=== PATIENT | female | born 1960 | race African-American/Black ===

== ENCOUNTER 2018-04-09 22:19 | Emergency (ER) | payer OTHER ==
[2018-04-09 22:50] LABS: Hemoglobin 15.5 g/dL (12.0-16.0); Mean Corpuscular HGB CONC 33.3 g/dL (32.0-36.0); Mean Platelet Volume 7.3 fL (7.4-10.4); Platelet Count 283 thou/uL (130-400); RBC Distribution Width 11.9 % (11.5-14.5); Red Blood Cell (RBC) Count 5.01 mill/uL (4.20-5.40); White Blood Cell (WBC) Count 6.6 thou/uL (4.8-10.8)
[2018-04-09 23:05] LABS: Lactate 1.18 mmol/L (0.50-2.20)
[2018-04-09 23:09] LABS: Eosinophils 1 % (0-10); Lymphocytes 60 % (21-51); MDiff Complete? YES; Monocytes 1 % (0-10); Neutrophil 38 % (42-75); PLT Morphology Comment Appears Adequate; RBC Morphology Normal
[2018-04-09 23:11] LABS: ALT (SGPT) 18 U/L (8-55); AST (SGOT) 18 U/L (5-34); Albumin 3.8 g/dL (3.5-5.0); Alkaline Phosphatase 104 U/L (40-150); Anion Gap 11 mmol/L (10-20); BUN (Urea Nitrogen) 9 mg/dL (9.8-20.1); Bilirubin, Total Less than 0.2 mg/dL (0.2-1.2); Calc. Creatinine Clearance 0 mL/min (70-130); Calcium 9.3 mg/dL (7.8-10.44); Carbon Dioxide 24 mmol/L (22-29); Chloride 110 mmol/L (98-107); Estimated GFR-MDRD 55; Globulin 3.8 g/dL (2.4-3.5); Glucose 161 mg/dL (70-105); Protein, Total 7.6 g/dL (6.0-8.3); Sodium 141 mmol/L (136-145)
--- NOTE | 2018-04-09 23:22 | RAD ---
AP VIEW CHEST: 04/09/18 HISTORY: Pneumonia. Given antibiotics. Symptoms not improving. AP view chest is obtained. The lungs are well aerated. No evidence of active intrathoracic disease s een. No evidence of effusions, pneumonia or pneumothorax seen. IMPRESSION: Unremarkable AP view chest. POS: [facility]
[2018-04-10] MEDS ORDERED: Dexamethasone 10 MG/ML VIAL ONE (00:09)
[2018-04-10] MEDS ORDERED: Ketorolac Tromethamine 30 MG/ML VIAL ONE ×2 (00:09→00:13)
[2018-04-10] MEDS ORDERED: Dexamethasone 4 mg/ml Vial ONE (00:13)
== END 2018-04-10 01:31 | disposition home or self-care (01) ==
LOC: ERS 22:19
DX: B34.9 Viral infection, unspecified (principal)
CPT/HCPCS: 71045; 80053; 83605; 85025; 87040; 87804; 94640; 96365; 96375; J1100; J1885; J7620

== ENCOUNTER 2018-08-09 21:12 | Emergency (ER) | payer OTHER ==
[2018-08-09] MEDS ORDERED: Ketorolac Tromethamine 30 MG/ML VIAL ONE (22:00)
--- NOTE | 2018-08-09 22:17 | CT ---
ABDOMEN CT WITHOUT CONTRAST PELVIC CT WITHOUT CONTRAST 08/09/18 COMPARISON: 02/05/18. HISTORY: Flank pain. FINDINGS: Lung bases are clear. Herat size is normal. No pericardial effusion. The visualized aorta has a pearl l caliber. No periaortic fat stranding. Contracted gallbladder, likely due to a nonfasting state. Corey ited evaluation of the solid organs by the lack of IV contrast. Grossly, no solid organ abnormality. No gastrohepatic, retrocrural or periportal lymphadenopathy. There are a few scattered nonspecific mesenteric lymph nodes, similar to the previous examination. No mesenteric mass, lymphadenopathy, free air or free fluid. Limited evaluation of the alimentary canal by the lack of oral contrast. Multiple normal caliber smal l bowel loops. Ileocecal junction is normal. Normal caliber appendix emanates from the cecal apex. Th ere is scattered fecal material in a nondistended, nondilated colon. Occasional diverticulum No diver ticulitis. Bilaterally, no hydronephrosis, nephrolithiasis, or perinephric fat stranding. Bilateral ureters have a normal caliber. No hydroureter, periureteral fat stranding or ureterolithiasis. CT PELVIS: No mass, lymphadenopathy, free air, or free fluid. Decompressed urinary bladder is noted. No lytic or blastic lesions in the osseous structures. Pseudoarthrosis of the left L5 ala with the sa zamzam. IMPRESSION: 1. No evidence for nephrolithiasis or obstructive uropathy. 2. No evidence of bowel obstruction. Normal caliber appendix. POS: [facility]
[2018-08-09 22:19] LABS: #Basophils 0.1 thou/uL (0.0-0.2); #Eosinphils 0.2 thou/uL (0.0-0.7); #Lymphocytes 2.6 thou/uL (1.20-3.40); #Monocytes 0.5 thou/uL (0.11-0.59); #Neutrophils 2.7 thou/uL (1.40-6.50); %Basophils 1.4 % (0.0-1.0); %Eosinophils 3.3 % (0.0-10.0); %Monocytes 8.2 % (0.0-10.0); %Neutrophils 44.1 % (42.0-75.0); Hemoglobin 14.3 g/dL (12.0-16.0); Mean Corpuscular HGB CONC 32.7 g/dL (32.0-36.0); Mean Corpuscular Hemoglobin 30.7 pg (27.0-31.0); Mean Corpuscular Volume 94.1 fL (78.0-98.0); Mean Platelet Volume 7.8 fL (7.4-10.4); Platelet Count 247 thou/uL (130-400); RBC Distribution Width 12.1 % (11.5-14.5); Red Blood Cell (RBC) Count 4.64 mill/uL (4.20-5.40); White Blood Cell (WBC) Count 6.1 thou/uL (4.8-10.8)
[2018-08-09 23:00] LABS: Bilirubin Negative (Negative); Blood, Urine Trace (Negative); Clarity CLEAR (Clear); Glucose, Urine (Dipstick) Negative (Negative); Leukocyte Negative (Negative); Nitrite Negative (Negative); Protein, Urine (Dipstick) Negative (Neg-Trace); Specific Gravity, Urine 1.026 (1.002-1.036); Urobilinogen 0.2 mg/dL (0.2-1.0)
[2018-08-09 23:02] LABS: Bacteria/HPF None Seen HPF (None Seen); Hyaline Casts/LPF 0-3 HYALINE CAST LPF (0-3 Hyaline); Pathc Cast-AUWi Flag 0.43 (0-2.49); Squamous Epithelial 0-3 HPF (0-3); WBC/HPF 0-3 HPF (0-3)
[2018-08-09 23:26] LABS: ALT (SGPT) 25 U/L (8-55); AST (SGOT) 20 U/L (5-34); Albumin 3.7 g/dL (3.5-5.0); Alkaline Phosphatase 101 U/L (40-150); Anion Gap 14 mmol/L (10-20); BUN (Urea Nitrogen) 10 mg/dL (9.8-20.1); Bilirubin, Total Less than 0.2 mg/dL (0.2-1.2); Calc. Creatinine Clearance 0 mL/min (70-130); Calcium 9.4 mg/dL (7.8-10.44); Carbon Dioxide 23 mmol/L (22-29); Chloride 107 mmol/L (98-107); Estimated GFR-MDRD 76; Globulin 3.3 g/dL (2.4-3.5); Glucose 183 mg/dL (70-105); Potassium 4.2 mmol/L (3.5-5.1); Sodium 140 mmol/L (136-145)
== END 2018-08-09 23:42 | disposition home or self-care (01) ==
LOC: ERS 21:12
DX: R10.9 Unspecified abdominal pain (principal); R31.9 Hematuria, unspecified; G43.909 Migraine, unspecified, not intractable, without status migrainosus
CPT/HCPCS: 74176; 80053; 81003; 81015; 85025; 96374; J1885

== ENCOUNTER 2018-11-17 19:13 | Emergency (ER) | payer OTHER ==
[2018-11-17 19:45] LABS: #Basophils 0.1 thou/uL (0.0-0.2); #Eosinphils 0.1 thou/uL (0.0-0.7); #Lymphocytes 2.5 thou/uL (1.20-3.40); #Monocytes 0.6 thou/uL (0.11-0.59); #Neutrophils 3.6 thou/uL (1.40-6.50); %Basophils 0.9 % (0.0-1.0); %Eosinophils 1.7 % (0.0-10.0); %Lymphocytes 37.1 % (21.0-51.0); %Monocytes 8.1 % (0.0-10.0); %Neutrophils 52.2 % (42.0-75.0); Hemoglobin 14.9 g/dL (12.0-16.0); Mean Corpuscular HGB CONC 33.3 g/dL (32.0-36.0); Mean Corpuscular Volume 93.2 fL (78.0-98.0); Mean Platelet Volume 7.6 fL (7.4-10.4); Platelet Count 247 thou/uL (130-400); RBC Distribution Width 12.3 % (11.5-14.5); Red Blood Cell (RBC) Count 4.81 mill/uL (4.20-5.40); White Blood Cell (WBC) Count 6.8 thou/uL (4.8-10.8)
[2018-11-17 20:13] LABS: ALT (SGPT) 22 U/L (8-55); AST (SGOT) 17 U/L (5-34); Alkaline Phosphatase 95 U/L (40-150); Anion Gap 14 mmol/L (10-20); BUN (Urea Nitrogen) 11 mg/dL (9.8-20.1); Bilirubin, Total 0.3 mg/dL (0.2-1.2); Calc. Creatinine Clearance 0 mL/min (70-130); Calcium 9.6 mg/dL (7.8-10.44); Carbon Dioxide 24 mmol/L (22-29); Chloride 106 mmol/L (98-107); Estimated GFR-MDRD 73; Globulin 3.4 g/dL (2.4-3.5); Glucose 123 mg/dL (70-105); Lipase 20 U/L (8-78); Potassium 3.6 mmol/L (3.5-5.1); Protein, Total 7.4 g/dL (6.0-8.3); Sodium 140 mmol/L (136-145)
[2018-11-17 20:36] LABS: Bilirubin Negative (Negative); Blood, Urine Trace (Negative); Clarity CLOUDY (Clear); Glucose, Urine (Dipstick) Negative (Negative); Leukocyte Small (Negative); Nitrite Negative (Negative); Protein, Urine (Dipstick) Negative (Neg-Trace); Specific Gravity, Urine 1.021 (1.002-1.036)
[2018-11-17 20:38] LABS: Bacteria/HPF None Seen HPF (None Seen); Hyaline Casts/LPF 0-3 HYALINE CAST LPF (0-3 Hyaline); Pathc Cast-AUWi Flag 0.81 (0-2.49)
[2018-11-17] MEDS ORDERED: Ondansetron PF 4 MG/2 ML Vial ONE (20:54)
[2018-11-17] MEDS ORDERED: Fentanyl 100 MCG/2 ML VIAL ONE (20:54)
--- NOTE | 2018-11-17 20:55 | CT ---
CT Abdomen Pelvis W Con: 11/17/2018 8:32 PM CLINICAL INFORMATION: Right-sided abdominal pain that radiates to the back COMPARISON: 09/25/2011; 08/09/2018 TECHNIQUE: Multiple contiguous axial images were obtained and a CT of the abdomen and pelvis with IV contrast. C oronal reformats were performed. FINDINGS: Lower Chest: within normal limits. Abdomen: Liver: within normal limits. Bile Ducts: Normal caliber. Gallbladder: No calcified gallstones. Normal caliber wall. Pancreas: within normal limits. Spleen: within normal limits. Adrenals: within normal limits. Kidneys: within normal limits. Pelvis: Reproductive Organs: Status post hysterectomy. Ureters: within normal limits. Phleboliths are seen in the pelvis. Bladder: within normal limits. Peritoneum: No ascites or free air, no fluid collection. Bowel: Normal caliber. Normal appendix. Mesentery and Retroperitoneum: No enlarged mesenteric or retroperitoneal lymph nodes. Vessels: Normal. Abdominal Wall: within normal limits. Bones: Degenerative changes in the spine. Bilateral L5 pars defects. IMPRESSION: No evidence of acute intraabdominal\pelvic abnormality.
--- NOTE | 2018-11-17 21:38 | ULT ---
US Gallbladder RUQ: 11/17/2018 8:32 PM CLINICAL HISTORY: Abdominal pain that radiates to the back. STUDY: Limited right upper quadrant ultrasound of abdomen. COMPARISON: CT abdomen/pelvis 11/17/2018 FINDINGS: Liver: Size: Normal. Echogenicity: Normal. Contour: Smooth. Mass: None. Bile ducts: No intrahepatic or extrahepatic biliary dilatation. Common bile duct measures 3 mm. Gallbladder: Contracted without gallstones Pancreas: Head, body, and tail appear normal. Right kidney: No pelvicalyceal dilatation. Right kidney measuring 9.1 cm in length. IMPRESSION: Unremarkable exam.
[2018-11-17 22:44] LABS: Bilirubin Negative (Negative); Blood, Urine Trace (Negative); Clarity CLOUDY (Clear); Glucose, Urine (Dipstick) Negative (Negative); Leukocyte Small (Negative); Nitrite Negative (Negative); Protein, Urine (Dipstick) Negative (Neg-Trace); Specific Gravity, Urine 1.021 (1.002-1.036); Urobilinogen 0.2 mg/dL (0.2-1.0)
[2018-11-17 22:45] LABS: Bacteria/HPF None Seen HPF (None Seen); Hyaline Casts/LPF 4-6 HYALINE CAST LPF (0-3 Hyaline); Pathc Cast-AUWi Flag 1.08 (0-2.49); RBC/HPF 0-3 HPF (0-3)
== END 2018-11-17 22:55 | disposition home or self-care (01) ==
LOC: ERS 19:13
DX: R10.31 Right lower quadrant pain (principal); R10.811 Right upper quadrant abdominal tenderness; G43.909 Migraine, unspecified, not intractable, without status migrainosus
CPT/HCPCS: 74177; 76705; 80053; 81003; 81015; 83690; 85025; 87086; 96361; 96372; 96374; 96375; J0500; J2405; J3010

== ENCOUNTER 2018-11-20 14:41 | Emergency (ER) | payer OTHER ==
[2018-11-20 15:21] LABS: #Basophils 0.1 thou/uL (0.0-0.2); #Eosinphils 0.1 thou/uL (0.0-0.7); #Lymphocytes 2.2 thou/uL (1.20-3.40); #Monocytes 0.7 thou/uL (0.11-0.59); #Neutrophils 3.4 thou/uL (1.40-6.50); %Basophils 1.3 % (0.0-1.0); %Eosinophils 2.1 % (0.0-10.0); %Lymphocytes 33.6 % (21.0-51.0); %Monocytes 10.6 % (0.0-10.0); %Neutrophils 52.3 % (42.0-75.0); Hemoglobin 14.8 g/dL (12.0-16.0); Mean Corpuscular HGB CONC 32.5 g/dL (32.0-36.0); Mean Corpuscular Hemoglobin 30.2 pg (27.0-31.0); Mean Corpuscular Volume 93.1 fL (78.0-98.0); Mean Platelet Volume 7.3 fL (7.4-10.4); Platelet Count 236 thou/uL (130-400); RBC Distribution Width 12.2 % (11.5-14.5); Red Blood Cell (RBC) Count 4.91 mill/uL (4.20-5.40); White Blood Cell (WBC) Count 6.5 thou/uL (4.8-10.8)
[2018-11-20] MEDS ORDERED: Ketorolac Tromethamine 30 MG/ML VIAL ONE (15:46)
[2018-11-20 15:47] LABS: ALT (SGPT) 29 U/L (8-55); AST (SGOT) 21 U/L (5-34); Albumin 3.7 g/dL (3.5-5.0); Alkaline Phosphatase 90 U/L (40-150); Anion Gap 10 mmol/L (10-20); BUN (Urea Nitrogen) 8 mg/dL (9.8-20.1); Bilirubin, Total 0.3 mg/dL (0.2-1.2); Calc. Creatinine Clearance 0 mL/min (70-130); Calcium 9.6 mg/dL (7.8-10.44); Carbon Dioxide 28 mmol/L (22-29); Chloride 107 mmol/L (98-107); Estimated GFR-MDRD 73; Globulin 3.1 g/dL (2.4-3.5); Glucose 103 mg/dL (70-105); Lipase 11 U/L (8-78); Potassium 3.9 mmol/L (3.5-5.1); Protein, Total 6.8 g/dL (6.0-8.3); Sodium 141 mmol/L (136-145)
[2018-11-20 16:01] LABS: Bilirubin Negative (Negative); Blood, Urine Negative (Negative); Clarity CLEAR (Clear); Glucose, Urine (Dipstick) Negative (Negative); Leukocyte Negative (Negative); Nitrite Negative (Negative); Protein, Urine (Dipstick) Negative (Neg-Trace); Specific Gravity, Urine 1.021 (1.002-1.036); Urobilinogen 0.2 mg/dL (0.2-1.0); pH, Urine 7.5 (5.0-9.0)
--- NOTE | 2018-11-20 16:43 | ULT ---
PELVIC ULTRASOUND: HISTORY: Right pelvic pain. TECHNIQUE: Transabdominal and endovaginal ultrasound of the pelvis performed. FINDINGS: The patient is post hysterectomy. The patient is unsure if she has had the ovaries removed. Neither ovary is identified. Bowel loops are seen in the pelvis. No fluid collection. IMPRESSION: Limited examination. No abnormality identified. The patient is post hysterectomy. Neither ovary is identified. POS: [facility]
== END 2018-11-20 16:35 | disposition home or self-care (01) ==
LOC: ERS 14:41
DX: R10.31 Right lower quadrant pain (principal)
CPT/HCPCS: 36415; 76857; 80053; 81003; 83690; 85025; 96361; 96374; J1885

== ENCOUNTER 2019-01-17 16:47 | Emergency (ER) | payer OTHER ==
[2019-01-17 18:06] LABS: #Eosinphils 0.1 thou/uL (0.0-0.7); #Lymphocytes 2.6 thou/uL (1.20-3.40); #Monocytes 0.7 thou/uL (0.11-0.59); #Neutrophils 4.3 thou/uL (1.40-6.50); %Basophils 0.3 % (0.0-1.0); %Eosinophils 1.6 % (0.0-10.0); %Lymphocytes 33.6 % (21.0-51.0); %Neutrophils 55.6 % (42.0-75.0); Hemoglobin 16.8 g/dL (12.0-16.0); Mean Corpuscular HGB CONC 32.8 g/dL (32.0-36.0); Mean Corpuscular Hemoglobin 30.6 pg (27.0-31.0); Mean Corpuscular Volume 93.2 fL (78.0-98.0); Mean Platelet Volume 7.4 fL (7.4-10.4); Platelet Count 258 thou/uL (130-400); White Blood Cell (WBC) Count 7.7 thou/uL (4.8-10.8)
[2019-01-17] MEDS ORDERED: Ondansetron PF 4 MG/2 ML Vial ONE (18:17)
[2019-01-17 18:19] LABS: ALT (SGPT) 47 U/L (8-55); AST (SGOT) 29 U/L (5-34); Albumin 4.2 g/dL (3.5-5.0); Alkaline Phosphatase 102 U/L (40-150); Anion Gap 12 mmol/L (10-20); BUN (Urea Nitrogen) 10 mg/dL (9.8-20.1); Bilirubin, Total 0.3 mg/dL (0.2-1.2); Calc. Creatinine Clearance 0 mL/min (70-130); Calcium 9.8 mg/dL (7.8-10.44); Carbon Dioxide 23 mmol/L (22-29); Chloride 108 mmol/L (98-107); Estimated GFR-MDRD 65; Globulin 3.8 g/dL (2.4-3.5); Glucose 105 mg/dL (70-105); Lipase 14 U/L (8-78); Potassium 4.2 mmol/L (3.5-5.1); Sodium 139 mmol/L (136-145)
[2019-01-17 20:11] LABS: Bacteria/HPF None Seen HPF (None Seen); Bilirubin Negative (Negative); Blood, Urine Negative (Negative); Clarity Clear (Clear); Glucose, Urine (Dipstick) Normal (Negative); Leukocyte 75 Leu/uL (Negative); Nitrite Negative (Negative); Protein, Urine (Dipstick) 10 mg/dL (Neg-Trace); Squamous Epithelial 0-3 HPF (0-3); Urobilinogen Normal mg/dL (Less than 2); WBC/HPF 0-3 HPF (0-3)
== END 2019-01-17 21:50 | disposition home or self-care (01) ==
LOC: ERS 16:47
DX: E86.0 Dehydration (principal); R42 Dizziness and giddiness; R51 Headache
CPT/HCPCS: 36415; 80053; 81003; 81015; 82550; 83690; 84484; 85025; 93005; 96360; 96361; 96374; J2405

== ENCOUNTER 2019-03-30 15:39 | Outpatient (CLI) | payer OTHER ==
--- NOTE | 2019-03-30 16:43 | MMO ---
Bilateral MAMMO Bilat Screen [facility]. CLINICAL HISTORY: Patient is 58 years old and is seen for screening. The patient has no family history of breast cancer. The patient has no personal history of cancer. The patient has a history of bilateral Breast reduction in 2010 - benign. VIEWS: The views performed were: bilateral craniocaudal with tomosynthesis and bilateral mediolateral oblique with tomosynthesis. FILMS COMPARED: The present examination has been compared to prior imaging studies performed at [facility] on 11/23/2013 and 11/14/2015. This study has been interpreted with the assistance of computer-aided detection. MAMMOGRAM FINDINGS: There are scattered fibroglandular densities. There are stable benign appearing calcifications seen in both breasts. There are no suspicious masses, suspicious calcifications, or new areas of architectural distortion. IMPRESSION: THERE IS NO MAMMOGRAPHIC EVIDENCE OF MALIGNANCY. A ROUTINE FOLLOW-UP MAMMOGRAM IN 1 YEAR IS RECOMMENDED. THE RESULTS OF THIS EXAM WERE SENT TO THE PATIENT. ACR BI-RADS Category 2 - Benign finding MAMMOGRAPHY NOTE: 1. A negative mammogram report should not delay a biopsy if a dominant of clinically suspicious mass is present. 2. Approximately 10% to 15% of breast cancers are not detected by mammography. 3. Adenosis and dense breasts may obscure an underlying neoplasm. Reported by: DEBBY RIDDLE MD Electonically Signed: [id number]
== END 2019-03-30 15:40 | disposition home or self-care (01) ==
LOC: BICMAMMO 15:39
PROVIDERS: ATTEND Specialist
DX: Z12.31 Encounter for screening mammogram for malignant neoplasm of breast (principal); Z91.89 Other specified personal risk factors, not elsewhere classified
CPT/HCPCS: 77063; 77067

== ENCOUNTER 2019-07-01 12:58 | Emergency (ER) | payer OTHER | END 2019-07-01 15:35 | disposition home or self-care (01) | LOC: ERS 12:58 | DX: J11.1 Influenza due to unidentified influenza virus with other respiratory manifestations (principal) | CPT/HCPCS: 87804; 99283 ==

== ENCOUNTER 2020-02-22 11:47 | Emergency (ER) | payer OTHER, SELFPAY ==
[2020-02-22 12:42] LABS: #Basophils 0.1 thou/uL (0.0-0.2); #Eosinphils 0.1 thou/uL (0.0-0.7); #Lymphocytes 2.9 thou/uL (1.20-3.40); #Monocytes 0.7 thou/uL (0.11-0.59); #Neutrophils 2.9 thou/uL (1.40-6.50); %Basophils 0.8 % (0.0-1.0); %Eosinophils 1.7 % (0.0-10.0); %Lymphocytes 43.9 % (21.0-51.0); %Monocytes 10.6 % (0.0-10.0); %Neutrophils 42.9 % (42.0-75.0); Hemoglobin 14.9 g/dL (12.0-16.0); Mean Corpuscular HGB CONC 32.7 g/dL (32.0-36.0); Mean Corpuscular Hemoglobin 30.6 pg (27.0-31.0); Mean Corpuscular Volume 93.6 fL (78.0-98.0); Mean Platelet Volume 7.5 fL (7.4-10.4); Platelet Count 252 thou/uL (130-400); RBC Distribution Width 12.4 % (11.5-14.5); Red Blood Cell (RBC) Count 4.88 mill/uL (4.20-5.40); White Blood Cell (WBC) Count 6.7 thou/uL (4.8-10.8)
[2020-02-22 13:12] LABS: ALT (SGPT) 27 U/L (8-55); AST (SGOT) 18 U/L (5-34); Albumin 3.8 g/dL (3.5-5.0); Alkaline Phosphatase 91 U/L (40-110); Anion Gap 8 mmol/L (10-20); BUN (Urea Nitrogen) 12 mg/dL (9.8-20.1); Bilirubin, Total 0.2 mg/dL (0.2-1.2); Calc. Creatinine Clearance 0 mL/min (70-130); Carbon Dioxide 28 mmol/L (22-29); Chloride 107 mmol/L (98-107); Estimated GFR-MDRD 74; Globulin 3.2 g/dL (2.4-3.5); Glucose 103 mg/dL (70-105); Lipase 11 U/L (8-78); Potassium 4.1 mmol/L (3.5-5.1); Sodium 139 mmol/L (136-145)
--- NOTE | 2020-02-22 14:53 | RAD ---
EXAM: 2 views of the abdomen HISTORY: Elbow pain with nausea and constipation COMPARISON: None FINDINGS: 2 views of the abdomen shows a nonspecific, nonobstructive bowel gas pattern. No free air o r air-fluid levels are seen on upright examination. No suspicious calcifications are seen. The bones are unremarkable. IMPRESSION: No evidence of bowel obstruction.
[2020-02-22] MEDS ORDERED: Lidocaine Viscous Sol 2% 15 ml UD Cup ONE (14:56)
[2020-02-22] MEDS ORDERED: Mag-Al 1200 mg/1200 mg/30 ML UDCUP ONE (14:57)
[2020-02-22 15:17] LABS: Bilirubin Negative (Negative); Blood, Urine Negative (Negative); Clarity Clear (Clear); Glucose, Urine (Dipstick) Normal (Negative); Ketone, Urine Negative (Negative); Leukocyte Negative Leu/uL (Negative); Nitrite Negative (Negative); Protein, Urine (Dipstick) Negative (Neg-Trace); Specific Gravity, Urine 1.018 (1.002-1.036); Urobilinogen Normal mg/dL (Less than 2); pH, Urine 6.5 (5.0-9.0)
[2020-02-22] MEDS ORDERED: Ketorolac Tromethamine 30 MG/ML VIAL ONE (17:11)
[2020-02-22] MEDS ORDERED: Ondansetron PF 4 MG/2 ML Vial ONE (17:11)
--- NOTE | 2020-02-22 17:31 | CT ---
CT abdomen and pelvis: 02/22/2020 COMPARISON: 11/17/2018 HISTORY: Diffuse abdominal pain for one week TECHNIQUE: Axial CT imaging at 5 mm intervals from lung bases through pubic symphysis with IV contras t. Coronal and sagittal reformatted imaging obtained. FINDINGS: The imaged lung bases are unremarkable. No free intraperitoneal air or fluid is seen. The l iver, gallbladder, spleen, pancreas, adrenal glands, and kidneys are unremarkable. The lack of oral contrast media limits assessment of the bowel. A moderate amount of stool is seen wi thin the rectal vault. There is diverticulosis of the sigmoid colon with no evidence for diverticulitis. No focal area of bowel inflammatory change is noted. No evidence for large or small b owel obstruction is seen. The appendix is unremarkable. Vascular structures of the abdomen/pelvis appear patent. No abdominal or pelvic lymphadenopathy is se en. Osseous structures demonstrate no acute findings. Lower lumbar spine facet hypertrophic change presen t. Posterior osteophyte present at L4-5 with associated central canal stenosis. IMPRESSION: Incidental findings as detailed above. No acute findings are noted.
== END 2020-02-22 18:55 | disposition home or self-care (01) ==
LOC: ERS 11:47
DX: K59.00 Constipation, unspecified (principal); R10.84 Generalized abdominal pain; G43.909 Migraine, unspecified, not intractable, without status migrainosus
CPT/HCPCS: 36415; 51701; 74019; 74177; 80053; 81003; 83690; 85025; 96374; 96375; J1885; J2405

== ENCOUNTER 2020-02-25 19:07 | Emergency (ER) | payer SELFPAY ==
[2020-02-25 19:37] LABS: Bilirubin Negative (Negative); Blood, Urine Negative (Negative); Clarity Clear (Clear); Glucose, Urine (Dipstick) Normal (Negative); Ketone, Urine Negative (Negative); Leukocyte Negative Leu/uL (Negative); Nitrite Negative (Negative); Protein, Urine (Dipstick) Negative (Neg-Trace); Specific Gravity, Urine 1.005 (1.002-1.036); Urobilinogen Normal mg/dL (Less than 2)
[2020-02-25 19:50] LABS: #Basophils 0.1 thou/uL (0.0-0.2); #Eosinphils 0.2 thou/uL (0.0-0.7); #Lymphocytes 2.3 thou/uL (1.20-3.40); #Monocytes 0.7 thou/uL (0.11-0.59); #Neutrophils 3.8 thou/uL (1.40-6.50); %Basophils 1.3 % (0.0-1.0); %Eosinophils 2.4 % (0.0-10.0); %Monocytes 9.5 % (0.0-10.0); %Neutrophils 53.8 % (42.0-75.0); Hemoglobin 15.3 g/dL (12.0-16.0); Mean Corpuscular HGB CONC 34.8 g/dL (32.0-36.0); Mean Corpuscular Hemoglobin 32.3 pg (27.0-31.0); Mean Corpuscular Volume 92.9 fL (78.0-98.0); Platelet Count 270 thou/uL (130-400); RBC Distribution Width 12.4 % (11.5-14.5); Red Blood Cell (RBC) Count 4.73 mill/uL (4.20-5.40); White Blood Cell (WBC) Count 7.1 thou/uL (4.8-10.8)
[2020-02-25 20:08] LABS: ALT (SGPT) 26 U/L (8-55); AST (SGOT) 19 U/L (5-34); Alkaline Phosphatase 84 U/L (40-110); Anion Gap 14 mmol/L (10-20); BUN (Urea Nitrogen) 10 mg/dL (9.8-20.1); Bilirubin, Total 0.3 mg/dL (0.2-1.2); Calc. Creatinine Clearance 0 mL/min (70-130); Calcium 9.2 mg/dL (7.8-10.44); Carbon Dioxide 23 mmol/L (22-29); Chloride 109 mmol/L (98-107); Estimated GFR-MDRD 59; Globulin 3.5 g/dL (2.4-3.5); Glucose 98 mg/dL (70-105); Potassium 3.7 mmol/L (3.5-5.1); Protein, Total 7.5 g/dL (6.0-8.3); Sodium 142 mmol/L (136-145)
== END 2020-02-25 21:40 | disposition home or self-care (01) ==
LOC: ERS 19:07
DX: R32 Unspecified urinary incontinence (principal); R10.30 Lower abdominal pain, unspecified
CPT/HCPCS: 36415; 80053; 81003; 85025; 99284

== ENCOUNTER 2020-03-24 19:30 | Emergency (ER) | payer OTHER, SELFPAY ==
[2020-03-24] MEDS ORDERED: Metoclopramide HCl 10 MG/2 ML VIAL ONE (19:44)
[2020-03-24] MEDS ORDERED: Ketorolac Tromethamine 30 MG/ML VIAL ONE (19:44)
[2020-03-24] MEDS ORDERED: diphenhydrAMINE 50 MG/ML VIAL ONE (19:44)
[2020-03-24] MEDS ORDERED: Magnesium 2 GM/50 ML BAG (IN WATER) ONE (20:38)
== END 2020-03-24 22:00 | disposition home or self-care (01) ==
LOC: ERS 19:30
DX: R51.9 Headache, unspecified (principal); M54.2 Cervicalgia; R11.0 Nausea
CPT/HCPCS: 96365; 96367; 96375; J1200; J1885; J2765; J3475

== ENCOUNTER 2020-04-16 14:53 | Outpatient (CLI) | payer OTHER ==
--- NOTE | 2020-04-16 16:23 | MMO ---
Bilateral MAMMO Bilat Screen [facility]. CLINICAL HISTORY: Patient is 59 years old and is seen for screening. The patient has no family history of breast cancer. The patient has no personal history of cancer. The patient has a history of bilateral Breast reduction in 2010 - benign. VIEWS: The views performed were: bilateral craniocaudal with tomosynthesis and bilateral mediolateral oblique with tomosynthesis. FILMS COMPARED: The present examination has been compared to prior imaging studies performed at [facility] on 11/23/2013, 11/14/2015 and 03/30/2019. This study has been interpreted with the assistance of computer-aided detection. MAMMOGRAM FINDINGS: There are scattered fibroglandular densities. Finding 1: There are stable benign appearing calcifications seen in both breasts. Finding 2: There are two stable fat containing, round masses with circumscribed margins seen in the right breast. Evidence for fat necrosis. There are no suspicious masses, suspicious calcifications, or new areas of architectural distortion. IMPRESSION: THERE IS NO MAMMOGRAPHIC EVIDENCE OF MALIGNANCY. A ROUTINE FOLLOW-UP MAMMOGRAM IN 1 YEAR IS RECOMMENDED. THE RESULTS OF THIS EXAM WERE SENT TO THE PATIENT. ACR BI-RADS Category 2 - Benign finding MAMMOGRAPHY NOTE: 1. A negative mammogram report should not delay a biopsy if a dominant of clinically suspicious mass is present. 2. Approximately 10% to 15% of breast cancers are not detected by mammography. 3. Adenosis and dense breasts may obscure an underlying neoplasm. Reported by: BRENNAN KELLEY MD Electonically Signed: [id number]
== END 2020-04-16 14:54 | disposition home or self-care (01) ==
LOC: BICMAMMO 14:53
PROVIDERS: ATTEND Specialist
DX: Z12.31 Encounter for screening mammogram for malignant neoplasm of breast (principal); Z98.890 Other specified postprocedural states
CPT/HCPCS: 77063; 77067

== ENCOUNTER 2020-04-27 18:46 | Inpatient (IN) | payer OTHER ==
[~2020-04-27 18:46] MED LIST: Iopamidol-370 76% 500 ML 1 ML ONE
[2020-04-27] MEDS ORDERED: Ondansetron PF 4 MG/2 ML Vial ONE (19:17)
[2020-04-27] MEDS ORDERED: Fentanyl 100 MCG/2 ML VIAL ONE (19:17)
[2020-04-27 19:46] LABS: #Basophils 0.1 thou/uL (0.0-0.2); #Eosinphils 0.1 thou/uL (0.0-0.7); #Lymphocytes 2.2 thou/uL (1.20-3.40); #Monocytes 0.8 thou/uL (0.11-0.59); #Neutrophils 7.4 thou/uL (1.40-6.50); %Basophils 0.5 % (0.0-1.0); %Eosinophils 1.1 % (0.0-10.0); %Lymphocytes 20.7 % (21.0-51.0); %Monocytes 7.6 % (0.0-10.0); %Neutrophils 70.1 % (42.0-75.0); Hemoglobin 14.2 g/dL (12.0-16.0); Mean Corpuscular HGB CONC 32.1 g/dL (32.0-36.0); Mean Corpuscular Volume 93.3 fL (78.0-98.0); Mean Platelet Volume 7.5 fL (7.4-10.4); Platelet Count 234 thou/uL (130-400); RBC Distribution Width 12.2 % (11.5-14.5); Red Blood Cell (RBC) Count 4.72 mill/uL (4.20-5.40); White Blood Cell (WBC) Count 10.6 thou/uL (4.8-10.8)
[2020-04-27] MEDS ORDERED: Piperacillin/Tazobactam 4.5 GM VIAL ONE (20:00)
[2020-04-27] MEDS ORDERED: Acetaminophen 500 MG TAB ONE (20:00)
[2020-04-27 20:21] LABS: Bacteria/HPF 1+ HPF (None Seen); Bilirubin Negative (Negative); Blood, Urine 2+ (Negative); Clarity Clear (Clear); Glucose, Urine (Dipstick) Normal (Negative); Ketone, Urine Trace mg/dL (Negative); Leukocyte 250 Leu/uL (Negative); Nitrite Negative (Negative); Protein, Urine (Dipstick) Negative (Neg-Trace); Specific Gravity, Urine 1.012 (1.002-1.036); Squamous Epithelial 0-3 HPF (0-3); Urobilinogen Normal mg/dL (Less than 2); pH, Urine 5.5 (5.0-9.0)
[2020-04-27 20:25] LABS: ALT (SGPT) 78 U/L (8-55); AST (SGOT) 89 U/L (5-34); Albumin 3.6 g/dL (3.5-5.0); Alkaline Phosphatase 113 U/L (40-110); Anion Gap 17 mmol/L (10-20); BUN (Urea Nitrogen) 11 mg/dL (9.8-20.1); Bilirubin, Total 0.3 mg/dL (0.2-1.2); Calc. Creatinine Clearance 0 mL/min (70-130); Calcium 9.4 mg/dL (7.8-10.44); Carbon Dioxide 20 mmol/L (22-29); Chloride 107 mmol/L (98-107); Estimated GFR-MDRD 62; Globulin 4.2 g/dL (2.4-3.5); Glucose 100 mg/dL (70-105); Lipase 7 U/L (8-78); Potassium 5.1 mmol/L (3.5-5.1); Protein, Total 7.8 g/dL (6.0-8.3); Sodium 139 mmol/L (136-145)
--- NOTE | 2020-04-27 20:51 | CT ---
CT of abdomen and pelvis: 04/27/2020 COMPARISON: 02/27/2020 HISTORY: Diverticulitis TECHNIQUE: Axial CT imaging at 5 mm intervals from lung bases through pubic symphysis with IV contras t. Coronal and sagittal reformatted imaging obtained. FINDINGS: Visualized lung bases are unremarkable. No free intraperitoneal air is noted. The liver, gallbladder, spleen, pancreas, adrenal glands, and kidneys are unremarkable. There is a focal area of prominent sigmoid colonic wall thickening with pericolonic fat stranding wit hin the lower pelvis superior and posterior to the urinary bladder measuring 8-9 cm in length. There are associated diverticula. Findings are most consistent with acute diverticulitis. The inflame d colon abuts the superior aspect of the urinary bladder with urinary bladder wall thickening. Questionable small foci of gas on the basis of microperforation versus prominent diverticula noted al maribel the medial aspect of the inflamed colon on axial image 70. No evidence for abscess formation. No evidence for bowel obstruction. The appendix is unremarkable. The vascular structures of the abdomen/pelvis appear patent. No abdominal or pelvic lymphadenopathy i s noted. There is lower lumbar spine facet hypertrophy and disc space narrowing with posterior osteophyte form ation at L4-5. No worrisome lytic or blastic bone lesion. IMPRESSION: 8-9 cm segment of thick-walled inflamed sigmoid colon with associated diverticula consist ent with acute diverticulitis. Questionable subtle changes of microperforation seen medially. No free intraperitoneal air or evidence of abscess. Recommend direct visualization via colonoscopy follo wing treatment to exclude an underlying mass.
[2020-04-27] MEDS ORDERED: Morphine 4 MG/ML VIAL ONE (21:02)
[2020-04-27] MEDS ORDERED: Ondansetron ODT 4 MG TAB SL PRN (23:45)
[2020-04-27] MEDS ORDERED: Ondansetron PF 4 MG/2 ML Vial IVP PRN (23:45)
[2020-04-27] MEDS ORDERED: Morphine 4 MG/ML VIAL SLOW IVP PRN (23:48)
[2020-04-28 00:05] VITALS: BMI 37.5
[2020-04-28 07:08] LABS: SARS-CoV-2 MS2 Positive; SARS-CoV-2 N Gene Negative; SARS-CoV-2 S Gene Negative; SARS-CoV-2 by NAA Not Detected (NotDetected); SARS-CoV-2 orf1ab Negative
[2020-04-28 09:03] LABS: #Eosinphils 0.1 thou/uL (0.0-0.7); #Lymphocytes 1.2 thou/uL (1.20-3.40); #Monocytes 0.5 thou/uL (0.11-0.59); #Neutrophils 3.4 thou/uL (1.40-6.50); %Basophils 0.9 % (0.0-1.0); %Eosinophils 2.3 % (0.0-10.0); %Lymphocytes 22.6 % (21.0-51.0); %Monocytes 9.9 % (0.0-10.0); %Neutrophils 64.3 % (42.0-75.0); Hemoglobin 13.2 g/dL (12.0-16.0); Mean Corpuscular Hemoglobin 31.5 pg (27.0-31.0); Mean Corpuscular Volume 95.6 fL (78.0-98.0); Mean Platelet Volume 8.6 fL (7.4-10.4); Platelet Count 230 thou/uL (130-400); RBC Distribution Width 12.3 % (11.5-14.5); Red Blood Cell (RBC) Count 4.19 mill/uL (4.20-5.40); White Blood Cell (WBC) Count 5.3 thou/uL (4.8-10.8)
[2020-04-28] MEDS ORDERED: Acetaminophen 650 MG Suppository PR PRN (09:20)
[2020-04-28 09:24] LABS: Anion Gap 13 mmol/L (10-20); BUN (Urea Nitrogen) 7 mg/dL (9.8-20.1); Calc. Creatinine Clearance 108 mL/min (70-130); Calcium 8.5 mg/dL (7.8-10.44); Carbon Dioxide 21 mmol/L (22-29); Chloride 111 mmol/L (98-107); Estimated GFR-MDRD 79; Glucose 105 mg/dL (70-105); Potassium 4.3 mmol/L (3.5-5.1); Sodium 141 mmol/L (136-145)
--- NOTE | 2020-04-28 09:27 | HP ---
Date of observation began on 04/27/2020 CHIEF COMPLAINT: Diverticulitis with possible microperforation versus severe colitis. HISTORY OF PRESENT ILLNESS: The patient is a 59-year-old female, who had been hospitalized since February of this year for abdominal pain, at which time, she underwent a complete colonoscopy with Dr. Blue. At that time, he found only constipation. He visualized the entire colon. It was a fair to poor prep, 80% to 85% of the mucosa surveyed, and no mention of diverticula is noted in his evaluation or colitis. This particular episode began one week prior to this time, steadily worsened until finally four days ago, she went to [facility], there a CT was performed, which identified diverticulitis and she was placed on Cipro and Flagyl. She has steadily worsened since that time and began to run fever to 101, also associated with nausea and vomiting. She came into [facility] for further evaluation and was noted by more recent CT to have 8-9 cm of swollen, inflamed colon right on the dome of her bladder and associated flaring, indicating possible diverticulitis. There was also the question of microperforation. Dr. Lewis was initially contacted, but he preferred to be admitted to medical, but he will be consulted to come see the patient. PAST MEDICAL HISTORY: Most recent hospital evaluation previously noted. She also has a significant history of gastroesophageal reflux, migraine headaches, hypertension, recurrent cystitis, pneumonia and most recently a diagnosis of constipation. PAST SURGICAL HISTORY: Includes removal of a bone from her neck, section x3, tubal ligation, and hysterectomy. PAST PSYCHIATRIC HISTORY: Negative. SOCIAL HISTORY: She lives alone. She works as a sitter for the ill. She denies alcohol or drug use. No smoking history either. MEDICATIONS ON ADMISSION: Include the aforementioned, 1. Cipro. 2. Flagyl. ALLERGIES: DARVOCET-N 100. REVIEW OF SYSTEMS: CONSTITUTIONAL: Positive for general malaise and fever. HEENT: Negative for drainage or sores in eyes, ears, nose, or throat. CHEST: Negative for cough or shortness of breath. CARDIOVASCULAR: Negative for palpitations or chest pain. GI: Positive for nausea and vomiting. Negative for diarrhea. : Positive for frequency, urgency, burning, painful urination. No blood is noted. MUSCULOSKELETAL: Negative for swelling, edema, or painful range of motion. SKIN: Negative for any new rashes or lesions. NEUROLOGICAL: Negative for headaches, blurred vision, or trouble with mentation. PSYCHIATRIC: Negative for anxiety or depression. PHYSICAL EXAMINATION: At the time of admission, VITAL SIGNS: Blood pressure is 106/70, pulse is 79, respirations 16, O2 saturation 96% on room air, and temperature is 98. She weighs 218 pounds 7 ounces. GENERAL: This is an obese female, who looks her stated age and in no acute distress at the time of evaluation. HEENT: Normocephalic, atraumatic. Pupils are equal, round, and reactive to light. Extraocular muscles are intact. TMs, nares, and pharynx are clear with moist membranes. Sclerae are nonicteric. NECK: Supple. Trachea midline. No mass. CHEST: Clear to auscultation bilaterally. HEART: Regular rate and rhythm. No murmur. BREASTS: Not done. ABDOMEN: Swollen, tense, tender in right lower quadrant with diminished bowel sounds. Mild guarding noted. : Deferred. EXTREMITIES: Without clubbing, cyanosis, or edema. SKIN: Without rashes or lesions. NEUROLOGICAL: Cranial nerves are intact. Gait and cerebral function are untested. Sensory exam is grossly intact. Mental status is clear. LABORATORY DATA: Lab work thus far shows WBCs at 10.6, hemoglobin 14.2, hematocrit 44.0 with platelets at 234. Sodium is 139, potassium 5.1, chloride 107, CO2 of 20, BUN is 11, creatinine 1.09 with GFR of 62, glucose 100, lactic acid 1.2, calcium 9.4. Liver function is slightly elevated with an AST of 89, ALT 78, and alkaline phos of 113. Troponins are negative. Lipase 7. Urinalysis is positive for 2+ blood, 250 leukocyte esterase with 7-10 wbc's. Serology is negative for COVID. ASSESSMENT: 1) Acute abdominal pain, etiologies include acute diverticulitis versus severe colitis, possible complications include microperforation. 2). Urinary tract infection-chronic. PLAN: IV fluids, n.p.o. status, surgical consultation, resumption of Flagyl and cefepime by IV, pain management, serial re-evaluation. Job ID: [id number] [facility]
[2020-04-28] MEDS: Sodium Chloride 0.9% 1,000 ML IV SCH ×3 (10:44→22:31)
[2020-04-28] MEDS: metroNIDAZOLE 500 MG in Premix Bag 1 BAG IVPB SCH ×2 (10:48→19:05)
--- NOTE | 2020-04-28 12:51 | CON ---
DATE OF CONSULTATION: 04/28/2020 REASON FOR CONSULTATION: Abdominal pain - acute diverticulitis. HISTORY OF PRESENT ILLNESS: Genaro Barros is a very pleasant 59-year-old female seen in the ER last night with abdominal pain and fever. The patient had an abdominal CAT scan, which revealed evidence of acute sigmoid diverticulitis with questionable microperforation and small pocket of air. There is also extensive pressure over the urinary bladder from the inflammatory changes. The patient woke up on Wednesday late morning at 4 o'clock with severe abdominal pain with some fever. She has no nausea, no vomiting. She went to [facility] ER on and a CAT scan was done. The CAT scan showed acute diverticulitis and she was sent home with antibiotics. She was advised to come to the ER if the pain gets worse. Apparently, the pain did not resolve because it was getting worse and she has fever. She came to the ER last night and had repeat CAT scan. The CAT scan does show evidence of acute diverticulitis with questionable microperforation. She had IV antibiotics. The patient had no similar episodes in the past. She has seen Dr. Ravi Blue in February 2020 for a screening colonoscopy. The colonoscopy was told to be normal. There is no mention of any diverticulosis in this patient. The patient at the present time has no nausea and vomiting, and abdominal pain persists. The pain in the left lower quadrant. She has had no stool for the last couple of days. No hematochezia. Does complain of some urinary frequency and urgency and some dysuria. She had no relevant history. ALLERGIES: DARVOCET-N WHICH IS NOT ON THE MARKET ANYMORE. SOCIAL HISTORY: She does not smoke or drink alcohol. MEDICAL ILLNESSES: None except for history of migraine. No hypertension, diabetes, heart disease, or lung disease. SURGERIES: 1. Three C-sections. 2. Partial hysterectomy. 3. Anterior cervical spine surgery to remove a spur. FAMILY HISTORY: No family history of any cancer, stroke, heart disease, or lung disease. MEDICATION LIST: Reviewed, which includes; 1. Acetaminophen. 2. . 3. Metronidazole. 4. Zofran p.r.n. 5. IV fluids. REVIEW OF SYSTEMS: A 10-point system review; CONSTITUTIONAL: No history of any fever until recently couple of days ago. No history of any weight loss. She had good exercise tolerance. HEAD: History of migraine headache off and on. No dizziness. EYES: No diplopia. No impaired vision. ENT: No abnormal symptoms. No nose bleed. No sore throat. NECK: No pain or stiffness. LUNGS: No chronic coughing. No hemoptysis. No dyspnea. CARDIOVASCULAR SYSTEM: No chest pain. No palpitation. No dyspnea, orthopnea, or PND. ABDOMEN: As in history of present illness. : History of dysuria, mild on frequency. MUSCULOSKELETAL: Not relevant. NEURO: Not relevant. ENDOCRINE: Not relevant. HEMATOLOGICAL: Not relevant. PHYSICAL EXAMINATION: GENERAL: She is obese, appears comfortable, in no acute distress. VITAL SIGNS: Stable. She is afebrile. Pulse is 79 and blood pressure 106/70. HEENT: Conjunctivae are clear. NECK: Supple. There is no enlarged lymph nodes or any enlarged thyroid gland. CARDIOVASCULAR SYSTEM: Normal heart sounds. No murmurs. LUNGS: Clear to auscultation. ABDOMEN: Soft to palpate. Abdomen is tender only over the left lower quadrant. There is no rebound or guarding. Her bowel sounds are active. EXTREMITIES: Reveal no edema. LABORATORY DATA: WBC count of 10,600 on admission and today 5300, hemoglobin 13.2, hematocrit 40, MCV 95.6, platelet count is 230,000, polymorphs 64, lymphocytes 22, and monocytes 9. Serum chemistry; sodium 141, potassium 4.3, chloride 111, bicarb 21, BUN is 7, creatinine is 0.89, glucose is 105, calcium 8.5, bilirubin is 0.3, AST 89, ALT 78, alkaline phosphatase is 113, albumin 3.6, and lipase 7. Abdominal CAT scan showed evidence of acute diverticulitis and questionable . IMPRESSION: 1. Acute diverticulitis, first episode. She had a colonoscopy I believe, in February [address] Ravi Blue. The abdomen does not show any evidence of rebound or guarding. She is afebrile. . 2. History of migraine headaches. 3. Negative colonoscopy in [address] Ravi Blue. 4. Cervical spine surgery in the past. 5. Partial hysterectomy. RECOMMENDATION: 1. N.P.O. except for ice chips. 2. Antibiotics. 3. IV fluids. 4. Dr. Ravi Blue will assume care from tomorrow and he will make further recommendation. Job ID: [id number]
[2020-04-28] MEDS: Cefepime 2 GM in Sodium Chloride 0.9% 100 ML IVPB SCH ×2 (15:13→22:32)
[2020-04-28] MEDS: Ondansetron PF 4 MG/2 ML Vial IVP PRN (19:00)
--- NOTE | 2020-04-28 22:27 | RAD ---
2 views of abdomen: 04/28/2020 HISTORY: Pain FINDINGS: Upright imaging demonstrates no free intraperitoneal air. The bowel gas pattern appears non obstructed. No acute osseous abnormality. IMPRESSION: No free intraperitoneal air or evidence of small bowel obstruction.
[2020-04-28] MEDS ORDERED: Ketorolac Tromethamine 30 MG/ML VIAL IVP PRN (23:53)
[2020-04-29] MEDS: Acetaminophen 325 MG TAB PO PRN ×2 (02:20→13:24)
[2020-04-29] MEDS: metroNIDAZOLE 500 MG in Premix Bag 1 BAG IVPB SCH ×3 (02:21→16:57)
[2020-04-29] MEDS: Cefepime 2 GM in Sodium Chloride 0.9% 100 ML IVPB SCH ×3 (05:08→21:47)
[2020-04-29 06:21] LABS: #Eosinphils 0.2 thou/uL (0.0-0.7); #Lymphocytes 1.7 thou/uL (1.20-3.40); #Monocytes 0.6 thou/uL (0.11-0.59); #Neutrophils 3.9 thou/uL (1.40-6.50); %Basophils 0.6 % (0.0-1.0); %Eosinophils 2.4 % (0.0-10.0); %Lymphocytes 26.5 % (21.0-51.0); %Monocytes 9.3 % (0.0-10.0); %Neutrophils 61.1 % (42.0-75.0); Hemoglobin 12.4 g/dL (12.0-16.0); Mean Corpuscular HGB CONC 32.3 g/dL (32.0-36.0); Mean Corpuscular Hemoglobin 30.5 pg (27.0-31.0); Mean Corpuscular Volume 94.2 fL (78.0-98.0); Mean Platelet Volume 7.2 fL (7.4-10.4); Platelet Count 231 thou/uL (130-400); Red Blood Cell (RBC) Count 4.06 mill/uL (4.20-5.40); White Blood Cell (WBC) Count 6.4 thou/uL (4.8-10.8)
[2020-04-29 06:44] LABS: Anion Gap 11 mmol/L (10-20); BUN (Urea Nitrogen) 7 mg/dL (9.8-20.1); Calc. Creatinine Clearance 112 mL/min (70-130); Calcium 8.5 mg/dL (7.8-10.44); Carbon Dioxide 24 mmol/L (22-29); Chloride 110 mmol/L (98-107); Estimated GFR-MDRD 82; Glucose 101 mg/dL (70-105); Potassium 3.7 mmol/L (3.5-5.1); Sodium 141 mmol/L (136-145)
--- NOTE | 2020-04-29 07:27 | CON ---
DATE OF CONSULTATION: 04/28/2020 REASON FOR CONSULTATION: Possible diverticulitis with microperforation. HISTORY OF PRESENT ILLNESS: The patient is a 59-year-old woman, who was brought to the emergency department with complaint of lower abdominal pain that started approximately 48 hours prior to coming to the emergency room. She had initially presented on Wednesday to [facility], who evaluated her with a CT scan that showed diverticulitis and she was started on oral antibiotics. Her pain did not subside, so she came to our facility, where she underwent re-evaluation with a repeat CT that showed again small diverticulitis with questionable microperforation. She was then admitted to the facility for IV antibiotics and GI and General Surgery consultation. We have been asked to see her in General Surgery consultation. The patient denied fever, nausea, vomiting, or diarrhea. She has not had a bowel movement since the Wednesday she presented to [facility]. She had a screening colonoscopy in February of this year by Dr. Blue and he did not say anything about diverticulosis or any other findings of that exam, essentially being a normal exam. ALLERGIES: DARVOCET. PAST MEDICAL HISTORY: Significant for gastroesophageal reflux disease, migraine headaches, hypertension, recurrent UTI, and intermittent constipation. PAST SURGICAL HISTORY: x3, bilateral tubal ligation, partial hysterectomy, and neck surgery. SOCIAL HISTORY: The patient lives independently alone. She denies drug, tobacco, or alcohol use. CURRENT MEDICATIONS: 1. Cipro. 2. Flagyl. 3. Ditropan XL. The patient denies blood thinner or antiplatelet use. REVIEW OF SYSTEMS: A 10-point review of systems is negative as otherwise stated. PHYSICAL EXAMINATION: VITAL SIGNS: Temperature is 98.2, heart rate 76, blood pressure 131/83, respirations 16, and oxygen saturation 94% on room air. GENERAL: The patient is resting comfortably in bed. She is in no distress. She has just started a clear liquid diet. Her Alfred Coma Scale is 15. HEENT: Unremarkable. LUNGS: Clear to auscultation with good inspiratory and expiratory effort. HEART: Regular rate and rhythm. ABDOMEN: Soft, nondistended without gross peritoneal signs. Has minimal lower abdominal discomfort with deep palpation. There is no rebound. No Rovsing sign. No tenderness to palpation over McBurney point. EXTREMITIES: Neurovascularly intact x4. LABORATORY FINDINGS: WBC 5.3, hemoglobin 13.2, hematocrit 40.0, and platelets 230. Sodium 141, potassium 4.3, chloride 111, CO2 of 21, BUN 7, creatinine 0.89, and glucose 105. COVID negative. Urinalysis has positive leukocyte esterase, 1+ bacteria, 7 to 10 wbc's and urine culture shows E coli. RADIOGRAPHIC FINDINGS: CT of the abdomen and pelvis with IV contrast shows an 8 to 9 cm segment of thick walled inflamed sigmoid colon with associated diverticula consistent with acute diverticulitis. There are questionable subtle changes of microperforation seen medially. No free intraperitoneal air or evidence of abscess. Recommend direct visualization via colonoscopy for following treatment to exclude an underlying mass. ASSESSMENT AND PLAN: 1. Abdominal pain with diverticulitis with concern for microperforation. 2. Inflamed sigmoid colon consistent with colitis. 3. Radiographic findings recommended colonoscopy after this medical treatment for this acute condition. There are no acute surgical indications at this time. The evaluation, examination, and radiographic findings were reviewed and discussed with Dr. Lewis, who concurs that this patient does not require general surgery at this time. The patient should continue IV antibiotics until tolerating oral intake, which from our standpoint can begin now and progress as tolerated. Recommend out of bed with physical and occupational therapy or walking program. We will be happy to see the patient should she develop fevers or peritoneal signs. Thank you for this consultation. Job ID: [id number]
[2020-04-29] MEDS: Sodium Chloride 0.9% 1,000 ML IV SCH ×2 (09:14→16:57)
--- NOTE | 2020-04-29 10:08 | PRG ---
DATE OF SERVICE: 04/29/2020 SUBJECTIVE: Ms. Barros says she is feeling pretty well. She continues to have some lower abdominal discomfort. No bowel movement over the past 4 days. She is not having any nausea or vomiting. Diet was advanced to clear liquids, which she has tolerated a small amount. OBJECTIVE: VITAL SIGNS: Temperature 97.9, pulse 66, blood pressure 137/81, 96% oxygen saturation on room air. GENERAL: No acute distress, lying in bed comfortably. HEART: Regular rate and rhythm. LUNGS: Clear to auscultation bilaterally. ABDOMEN: Bowel sounds hypoactive, but present. There is no guarding or rebound tenderness. There is tenderness to palpation in the lower abdomen. EXTREMITIES: No peripheral edema. LABORATORY STUDIES: WBC 6.4, hemoglobin 12.4, platelets 231. Sodium 141, potassium 3.7, BUN 7, creatinine 0.86. COVID PCR negative. ASSESSMENT AND PLAN: 1. Acute sigmoid diverticulitis with micro perforation. 2. Lower abdominal pain, secondary to sigmoid diverticulitis. Appreciate surgical colleagues' evaluation. There is not felt to be any surgical indication at this time. They have recommended continuing with IV antibiotics. The patient is currently on cefepime and metronidazole. Continue to advance diet slowly as tolerated. Monitor for fever or worsening symptoms with this. Also note that she had a colonoscopy during recent admission on 02/29/2020, and though the bowel preparation was only fair to poor, it was adequate to exclude any stricture or large mass lesion. The prep was not adequate for polyp detection though. Advance diet as tolerated. Continue IV antibiotics. GI will continue to follow along. It would be reasonable to perform repeat colonoscopy in the outpatient setting in a couple of months. Job ID: [id number]
--- NOTE | 2020-04-29 18:11 | PRG ---
DATE OF SERVICE: 04/29/2020 SUBJECTIVE: The patient is currently on the Medicine Floor. She is a patient we are seeing in consultation for diverticulitis with suspected micro perforation. She was evaluated yesterday and her radiographs to include her CT was reviewed as felt that she was a nonsurgical candidate. Overnight, she had no issues. She remains fever free. Her white count remains within normal limits at 6.4. She is tolerating a liquid diet and this evening is reportedly going to have it advanced to regular. She reports that she has ambulated today. Her discomfort is only slightly improved in her lower abdomen. PHYSICAL EXAMINATION: VITAL SIGNS: Temperature is 97.6, heart rate 71, blood pressure 139/85, respirations 12, oxygen saturation 97% on room air. GENERAL: The patient is resting comfortably in bed. She is awake, alert, and oriented. ABDOMEN: Soft and nondistended with no peritoneal signs. She has active bowel sounds and only minimal discomfort with deep palpation to her lower quadrants. LABORATORY FINDINGS: White blood cell count 6.4, hemoglobin 12.4, hematocrit 38.3, and platelets 231. RADIOGRAPHIC FINDINGS: There are no radiographs to review this morning. ASSESSMENT: 1. Abdominal pain due to acute sigmoid diverticulitis with micro perforation. 2. Urinary tract infection. Culture results show presumptive Escherichia coli. PLAN: Plan will be to continue supportive care. Encourage out of bed and ambulation. Diet as tolerated. Transition to oral antibiotics when appropriate. Should the patient's white count elevated or become febrile, we would recommend contrasted CT and we would likely require interventional Radiology for percutaneous drain placement. We may also be notified to re-evaluate the patient. Otherwise, the patient may follow up with us in [address] The patient may call our clinic to arrange for the CT and appointment. Job ID: [id number]
[2020-04-30] MEDS: metroNIDAZOLE 500 MG in Premix Bag 1 BAG IVPB SCH ×3 (01:33→16:55)
[2020-04-30] MEDS: Cefepime 2 GM in Sodium Chloride 0.9% 100 ML IVPB SCH ×3 (05:08→21:00)
[2020-04-30 06:33] LABS: #Eosinphils 0.1 thou/uL (0.0-0.7); #Lymphocytes 1.4 thou/uL (1.20-3.40); #Monocytes 0.5 thou/uL (0.11-0.59); #Neutrophils 2.8 thou/uL (1.40-6.50); %Basophils 0.5 % (0.0-1.0); %Eosinophils 2.4 % (0.0-10.0); %Lymphocytes 28.2 % (21.0-51.0); %Monocytes 10.8 % (0.0-10.0); Hemoglobin 13.3 g/dL (12.0-16.0); Mean Corpuscular HGB CONC 32.8 g/dL (32.0-36.0); Mean Corpuscular Hemoglobin 30.9 pg (27.0-31.0); Mean Corpuscular Volume 94.2 fL (78.0-98.0); Platelet Count 250 thou/uL (130-400); RBC Distribution Width 12.2 % (11.5-14.5); White Blood Cell (WBC) Count 4.8 thou/uL (4.8-10.8)
[2020-04-30 06:53] LABS: Anion Gap 12 mmol/L (10-20); BUN (Urea Nitrogen) 7 mg/dL (9.8-20.1); Calc. Creatinine Clearance 112 mL/min (70-130); Calcium 8.8 mg/dL (7.8-10.44); Carbon Dioxide 25 mmol/L (22-29); Chloride 109 mmol/L (98-107); Estimated GFR-MDRD 82; Glucose 112 mg/dL (70-105); Sodium 142 mmol/L (136-145)
[2020-04-30] MEDS: Ondansetron PF 4 MG/2 ML Vial IVP PRN (15:39)
--- NOTE | 2020-04-30 19:08 | PRG ---
DATE OF SERVICE: 04/30/2020 SUBJECTIVE: Overall, Ms. Barros is feeling better with less pain, although still moderately significant today. She is able to ambulate to the bathroom. She is passing some gas, but no stool. She is tolerating soft GI diet. There is some nausea, but no vomiting. PHYSICAL EXAMINATION: VITAL SIGNS: Temperature is 98.5, blood pressure 124/66, pulse of 81. GENERAL: She is alert, conversant, does not appear any distress. HEENT: Oropharynx is clear and moist. CV: Exam shows normal S1, S2. Regular rate and rhythm. CHEST: Shows breath sound clear to auscultation. ABDOMEN: Protuberant, but soft. There is moderate tenderness to the left mid, lower and suprapubic area. Mild guarding, but no rebound. She has bowel sounds. EXTREMITIES: No edema. LABORATORY DATA: WBCs 4.8, hemoglobin 13.3, and platelet count of 250. Electrolytes within normal range, creatinine is 0.86. ASSESSMENT: The patient was admitted 3 days ago with acute diverticulitis with CT showing subtle changes, microperforation of the sigmoid colon. There is no phlegmon or abscess. Subjectively, patient is having less pain. She is afebrile and does not have any leukocytosis. Overall, I definitely think her acute diverticulitis is improving. RECOMMENDATION: 1. Continue with IV cefepime 2 g q.8. 2. Metronidazole 500 mg t.i.d. 3. Continue ondansetron as needed for the nausea, which is likely from the metronidazole. 4. We will continue with her regular diet as she is tolerating it. 5. The patient is advised to increase ambulation. 6. We will start on Lovenox subcu for DVT prophylaxis. Job ID: [id number]
[2020-04-30] MEDS: Enoxaparin Sodium 40 MG/0.4 ML SYRINGE SC SCH (20:58)
[2020-05-01] MEDS: metroNIDAZOLE 500 MG in Premix Bag 1 BAG IVPB SCH ×2 (02:31→09:22)
[2020-05-01] MEDS: Cefepime 2 GM in Sodium Chloride 0.9% 100 ML IVPB SCH ×2 (05:17→15:20)
[2020-05-01 06:57] LABS: #Eosinphils 0.1 thou/uL (0.0-0.7); #Lymphocytes 1.4 thou/uL (1.20-3.40); #Monocytes 0.6 thou/uL (0.11-0.59); #Neutrophils 2.6 thou/uL (1.40-6.50); %Basophils 0.4 % (0.0-1.0); %Eosinophils 2.4 % (0.0-10.0); %Lymphocytes 28.9 % (21.0-51.0); %Monocytes 12.9 % (0.0-10.0); %Neutrophils 55.4 % (42.0-75.0); Hemoglobin 13.7 g/dL (12.0-16.0); Mean Corpuscular HGB CONC 32.1 g/dL (32.0-36.0); Mean Corpuscular Hemoglobin 30.8 pg (27.0-31.0); Mean Corpuscular Volume 95.8 fL (78.0-98.0); Mean Platelet Volume 7.3 fL (7.4-10.4); Platelet Count 247 thou/uL (130-400); RBC Distribution Width 12.2 % (11.5-14.5); Red Blood Cell (RBC) Count 4.44 mill/uL (4.20-5.40); White Blood Cell (WBC) Count 4.8 thou/uL (4.8-10.8)
[2020-05-01 07:22] LABS: Anion Gap 12 mmol/L (10-20); BUN (Urea Nitrogen) 10 mg/dL (9.8-20.1); Calc. Creatinine Clearance 113 mL/min (70-130); Calcium 8.7 mg/dL (7.8-10.44); Carbon Dioxide 24 mmol/L (22-29); Chloride 109 mmol/L (98-107); Estimated GFR-MDRD 83; Glucose 115 mg/dL (70-105); Potassium 3.8 mmol/L (3.5-5.1); Sodium 141 mmol/L (136-145)
[2020-05-01] MEDS ORDERED: Cefepime 2 GM VIAL ONE (13:35)
[2020-05-01] MEDS ORDERED: traMADol HCl 50 MG TAB PO PRN ×2 (14:03)
[2020-05-01] MEDS ORDERED: Ondansetron PF 4 MG/2 ML Vial IVP PRN (14:07)
[2020-05-01] MEDS ORDERED: Ciprofloxacin 500 MG TAB PO SCH (14:45)
[2020-05-01] MEDS: metroNIDAZOLE 500 MG TAB PO SCH ×2 (14:53→21:39)
[2020-05-01] MEDS ORDERED: Amoxicillin/Potassium Clav 875 MG TAB PO SCH (18:00)
[2020-05-01] MEDS: Acetaminophen 325 MG TAB PO SCH ×2 (18:13→23:42)
[2020-05-01] MEDS: Amoxicillin/Potassium Clav 875 MG TAB PO SCH (18:13)
[2020-05-01] MEDS: Ciprofloxacin 500 MG TAB PO SCH (20:18)
[2020-05-01] MEDS: Enoxaparin Sodium 40 MG/0.4 ML SYRINGE SC SCH (20:18)
[2020-05-02] MEDS: Ciprofloxacin 500 MG TAB PO SCH ×2 (05:35→21:19)
[2020-05-02] MEDS: Acetaminophen 325 MG TAB PO SCH ×4 (05:37→23:59)
[2020-05-02 06:20] LABS: #Basophils 0.1 thou/uL (0.0-0.2); #Eosinphils 0.1 thou/uL (0.0-0.7); #Lymphocytes 1.9 thou/uL (1.20-3.40); #Monocytes 0.7 thou/uL (0.11-0.59); #Neutrophils 2.9 thou/uL (1.40-6.50); %Basophils 1.3 % (0.0-1.0); %Eosinophils 2.5 % (0.0-10.0); %Monocytes 12.8 % (0.0-10.0); %Neutrophils 50.4 % (42.0-75.0); Hemoglobin 13.6 g/dL (12.0-16.0); Mean Corpuscular HGB CONC 32.4 g/dL (32.0-36.0); Mean Corpuscular Hemoglobin 30.4 pg (27.0-31.0); Mean Corpuscular Volume 93.8 fL (78.0-98.0); Platelet Count 271 thou/uL (130-400); RBC Distribution Width 12.3 % (11.5-14.5); Red Blood Cell (RBC) Count 4.48 mill/uL (4.20-5.40); White Blood Cell (WBC) Count 5.8 thou/uL (4.8-10.8)
[2020-05-02 06:43] LABS: Anion Gap 13 mmol/L (10-20); BUN (Urea Nitrogen) 11 mg/dL (9.8-20.1); Calc. Creatinine Clearance 104 mL/min (70-130); Carbon Dioxide 24 mmol/L (22-29); Chloride 108 mmol/L (98-107); Estimated GFR-MDRD 76; Glucose 120 mg/dL (70-105); Sodium 141 mmol/L (136-145)
[2020-05-02] MEDS: Amoxicillin/Potassium Clav 875 MG TAB PO SCH ×2 (08:43→17:21)
[2020-05-02] MEDS: Saccharomyces boulardii 250 MG CAP PO SCH (08:43)
[2020-05-02] MEDS: metroNIDAZOLE 500 MG TAB PO SCH ×3 (08:43→21:19)
--- NOTE | 2020-05-02 09:56 | PRG ---
DATE OF SERVICE: 05/02/2020 SUBJECTIVE: Ms. Barros is overall feeling well. She has some mild nausea, but no vomiting. She is tolerating her regular diet and oral antibiotics. Left lower quadrant pain persists and is slowly improving. She has had a few small bowel movements and is passing gas. PHYSICAL EXAMINATION: VITAL SIGNS: Temperature 97.4, pulse rate 66, blood pressure 141/83, and 96% oxygen saturation on room air. GENERAL: No acute distress. HEART: Regular rate and rhythm. LUNGS: Clear to auscultation bilaterally. ABDOMEN: Bowel sounds present. Soft. Tender to palpation in left lower quadrant, but no guarding or rebound tenderness. EXTREMITIES: No peripheral edema. LABORATORY STUDIES: WBC is 5.8, hemoglobin 13.6, and platelets are 271. Sodium 141, potassium 4.0, BUN 11, creatinine 0.92, and glucose 120. ASSESSMENT/PLAN: 1. Acute sigmoid diverticulitis with micro perforation, slowly improving, on antibiotic therapy. 2. Left lower quadrant pain, secondary to diverticulitis. The patient has been transitioned oral antibiotics with ciprofloxacin, metronidazole, and Augmentin with continued clinical improvement. Suspect she will be able to be discharged in the next day or two. It looks like surgery is planning to follow up in a couple of weeks with repeat imaging. We will plan to have her follow up in the GI Clinic as well. Please call anytime with questions or concerns. Job ID: [id number]
[2020-05-02] MEDS: Enoxaparin Sodium 40 MG/0.4 ML SYRINGE SC SCH (21:19)
[2020-05-03] MEDS: Ciprofloxacin 500 MG TAB PO SCH (05:22)
[2020-05-03] MEDS: Acetaminophen 325 MG TAB PO SCH ×2 (05:23→12:12)
--- NOTE | 2020-05-03 07:29 | PRG ---
DATE OF SERVICE: 05/01/2020 SUBJECTIVE: The patient feels better today. The pain is significantly less than when admitted. She has poor appetite with some nausea but no vomiting. She is tolerating regular diet. She still has not had a bowel movement since admission. PHYSICAL EXAMINATION: VITAL SIGNS: Temperature is 98.4, blood pressure 148/78, pulse of 70. GENERAL: She is alert, conversant without distress. HEENT: Shows anicteric sclerae. CV: Shows normal S1, S2. Regular rate and rhythm. CHEST: Shows breath sounds. ABDOMEN: Protuberant, tender in the left lower quadrant and suprapubic area. No rebound or guarding. She has active bowel sounds. EXTREMITIES: Show no edema. LABORATORY DATA: WBCs 4.8, hemoglobin 13.7, and platelet count of 247. Electrolytes within normal range. Creatinine is 0.85. IMPRESSION: Acute sigmoid diverticulitis with evidence of microperforation on CT. Clinically, much improved with less pain, afebrile, and normal white blood count. Her current exam today is better than yesterday. RECOMMENDATIONS: 1. Agree with changing to oral antibiotics. 2. Can discharge tomorrow if she continues to improve. Job ID: [id number]
[2020-05-03] MEDS: Saccharomyces boulardii 250 MG CAP PO SCH (10:56)
[2020-05-03] MEDS: metroNIDAZOLE 500 MG TAB PO SCH (10:56)
[2020-05-03 11:36] VITALS: BP 132/79; TEMP 98.2
== END 2020-05-03 14:10 | disposition home or self-care (01) | DRG 392 ==
LOC: ERS 18:46 → T4-B 22:28 → OBSVTOIN 22:28
PROVIDERS: ADMIT Specialist; ATTEND Specialist
DX: K57.20 Diverticulitis of large intestine with perforation and abscess without bleeding (principal); N39.0 Urinary tract infection, site not specified; G43.909 Migraine, unspecified, not intractable, without status migrainosus; K21.9 Gastro-esophageal reflux disease without esophagitis; I10 Essential (primary) hypertension; E66.9 Obesity, unspecified; Z88.8 Allergy status to other drugs, medicaments and biological substances; Z68.37 Body mass index [BMI] 37.0-37.9, adult; Z98.51 Tubal ligation status; Z20.828 Contact with and (suspected) exposure to other viral communicable diseases; R10.84 Generalized abdominal pain
CPT/HCPCS: 36415; 74019; 74177; 80048; 80053; 81003; 81015; 83605; 83690; 84484; 85025; 87040; 87077; 87086; 87186; 87635; 93005; 96365; 96367; 96375; G0378; J0692; J1650; J1885; J2270; J2405; J2543; J3010; J3490; Q9967; U0003

== ENCOUNTER 2020-10-07 11:56 | Outpatient (CLI) | payer OTHER ==
[2020-07-30 14:43] LABS: Hemoglobin 15.4 g/dL (12.0-15.5); Mean Corpuscular HGB CONC 32.7 g/dL (32.0-36.0); Mean Corpuscular Hemoglobin 29.4 pg (27.0-33.0); Mean Corpuscular Volume 89.9 fl (81.6-98.3); Mean Platelet Volume 12.7 fl (7.4-10.4); Platelet Count 216 10x3/uL (150-450); RBC Distribution Width 12.9 % (11.5-14.5); Red Blood Cell (RBC) Count 5.24 10x6/uL (3.90-5.03); White Blood Cell (WBC) Count 6.4 10x3/uL (3.5-10.5)
[2020-07-30 14:46] LABS: Bilirubin Neg (Negative); Blood, Urine 10 (Negative); Clarity Clear (Clear); Glucose, Urine (Dipstick) >=1000 mg/dL (Negative); Ketone, Urine 50 mg/dL (Negative); Leukocyte Negative (Negative); Nitrite Negative (Negative); Protein, Urine (Dipstick) Negative (Neg-Trace); Urobilinogen Normal mg/dL (Less than 2)
[2020-07-30 15:01] LABS: PTT 25.8 sec (22.0-33.0); Prothrombin Time 10.3 sec (9.5-12.1)
[2020-07-30 15:03] LABS: Anion Gap 19 mmol/L (10-20); BUN (Urea Nitrogen) 17 mg/dL (9.8-20.1); Calc. Creatinine Clearance 0 mL/min (70-130); Calcium 9.4 mg/dL (7.8-10.44); Carbon Dioxide 19 mmol/L (22-29); Chloride 98 mmol/L (98-107); Potassium 5.1 mmol/L (3.5-5.1); Sodium 131 mmol/L (136-145)
[2020-07-30 15:20] LABS: Glucose 727 mg/dL (70-105)
[2020-07-30 15:54] LABS: Bacteria/HPF None Seen HPF (None Seen); RBC/HPF None Seen HPF (0-3); Squamous Epithelial None Seen HPF (0-3); WBC/HPF 0-3 HPF (0-3)
[2020-07-31 01:19] LABS: SARS-CoV-2 PCR by NAA Not Detected (NotDetected)
[2020-10-07 15:04] LABS: INR-International Normal Ratio 0.9; PTT 26.3 sec (22.0-33.0)
[2020-10-07 15:06] LABS: Anion Gap 14 mmol/L (10-20); BUN (Urea Nitrogen) 15 mg/dL (9.8-20.1); Calc. Creatinine Clearance 0 mL/min (70-130); Calcium 9.1 mg/dL (7.8-10.44); Carbon Dioxide 25 mmol/L (22-29); Chloride 107 mmol/L (98-107); Glucose 81 mg/dL (70-105); Potassium 4.4 mmol/L (3.5-5.1); Sodium 142 mmol/L (136-145)
[2020-10-07 15:07] LABS: Hemoglobin 14.7 g/dL (12.0-15.5); Mean Corpuscular HGB CONC 31.9 g/dL (32.0-36.0); Mean Corpuscular Hemoglobin 30.2 pg (27.0-33.0); Mean Corpuscular Volume 94.9 fl (81.6-98.3); Mean Platelet Volume 10.4 fl (7.4-10.4); Platelet Count 291 10x3/uL (150-450); RBC Distribution Width 13.6 % (11.5-14.5); Red Blood Cell (RBC) Count 4.86 10x6/uL (3.90-5.03); White Blood Cell (WBC) Count 4.9 10x3/uL (3.5-10.5)
[2020-10-07 15:21] LABS: Bilirubin Neg (Negative); Blood, Urine Negative (Negative); Clarity Clear (Clear); Glucose, Urine (Dipstick) >=1000 mg/dL (Negative); Ketone, Urine Negative (Negative); Leukocyte 25 (Negative); Nitrite Negative (Negative); Protein, Urine (Dipstick) Negative (Neg-Trace); Urobilinogen Normal mg/dL (Less than 2)
[2020-10-07 16:15] LABS: Bacteria/HPF None Seen HPF (None Seen); RBC/HPF None Seen HPF (0-3); Squamous Epithelial None Seen HPF (0-3); WBC/HPF None Seen HPF (0-3)
[2020-10-08 02:13] LABS: SARS-CoV-2 PCR by NAA Not Detected (NotDetected)
== END 2020-10-07 11:57 | disposition home or self-care (01) ==
LOC: LABBT 11:56
PROVIDERS: ATTEND Urology
DX: Z01.818 Encounter for other preprocedural examination (principal); N39.46 Mixed incontinence; N39.0 Urinary tract infection, site not specified; R33.9 Retention of urine, unspecified; K59.00 Constipation, unspecified; Z20.822 Contact with and (suspected) exposure to COVID-19
CPT/HCPCS: 71046; 80048; 81001; 85027; 85610; 85730; 87086; 87635; 93005; 93010; U0003; U0005

== ENCOUNTER 2020-10-10 06:57 | Day surgery (SDC) | payer OTHER ==
[2020-10-09 10:47] VITALS: BMI 33.5
[2020-10-10] MEDS ORDERED: Bupivacaine 0.25% HCL 30 ML VIAL ONE (09:04)
[2020-10-10] MEDS ORDERED: Neomycin-Polymyxin 1 ML AMP ONE (09:04)
[2020-10-10] MEDS ORDERED: Dexmedetomidine 200 MCG/2 ML VIAL ONE (10:59)
[2020-10-10] MEDS ORDERED: Fentanyl 100 MCG/2 ML VIAL ONE ×3 (10:59→13:17)
[2020-10-10] MEDS ORDERED: Succinylcholine 200 MG/10 ml SYRINGE FS ONE (11:18)
[2020-10-10] MEDS ORDERED: Lidocaine 1% PF 5 ML VIAL ONE (11:18)
[2020-10-10] MEDS ORDERED: Ondansetron PF 4 MG/2 ML Vial ONE (11:18)
[2020-10-10] MEDS ORDERED: PROPOFOL 200 MG/20 ML VIAL ONE (11:18)
[2020-10-10] MEDS ORDERED: ePHEDrine Sulfate 50 MG/10 ML VIAL ONE (11:18)
[2020-10-10] MEDS ORDERED: Dexamethasone 20 MG/5 ML VIAL ONE (11:18)
[2020-10-10] MEDS ORDERED: HYDROcodone/Acetaminophen 5/325 mg Tablet ONE (15:07)
== END 2020-10-10 15:35 | disposition home or self-care (01) ==
LOC: SDC 06:57
PROVIDERS: ATTEND Urology
PROC: 01HY3MZ Insertion of Neurostimulator Lead into Peripheral Nerve, Percutaneous Approach (ICD-10-PCS; principal; 2020-10-10)
DX: N39.46 Mixed incontinence (principal); N32.81 Overactive bladder; R39.14 Feeling of incomplete bladder emptying; N39.0 Urinary tract infection, site not specified; R33.9 Retention of urine, unspecified; G43.909 Migraine, unspecified, not intractable, without status migrainosus; Z79.84 Long term (current) use of oral hypoglycemic drugs; Z88.6 Allergy status to analgesic agent; Z88.8 Allergy status to other drugs, medicaments and biological substances
CPT/HCPCS: 72220; 76000; J0690; J1100; J2405; J2704; J3010; S0020

== ENCOUNTER 2020-10-14 17:11 | Outpatient (CLI) | payer OTHER ==
[2020-10-14 18:00] LABS: Bilirubin Neg (Negative); Blood, Urine 10 (Negative); Clarity Clear (Clear); Glucose, Urine (Dipstick) >=1000 mg/dL (Negative); Ketone, Urine Negative (Negative); Leukocyte 100 (Negative); Nitrite Negative (Negative); Protein, Urine (Dipstick) Negative (Neg-Trace); Specific Gravity, Urine 1.015 (1.002-1.036); Urobilinogen Normal mg/dL (Less than 2)
[2020-10-14 18:08] LABS: Bacteria/HPF 1+ HPF (None Seen); RBC/HPF 0-3 HPF (0-3); Squamous Epithelial 0-3 HPF (0-3); WBC/HPF 0-3 HPF (0-3)
[2020-10-15 01:32] LABS: SARS-CoV-2 PCR by NAA Not Detected (NotDetected)
== END 2020-10-14 17:12 | disposition home or self-care (01) ==
LOC: LABBT 17:11
PROVIDERS: ATTEND Urology
DX: Z01.812 Encounter for preprocedural laboratory examination (principal); N39.46 Mixed incontinence; N39.0 Urinary tract infection, site not specified; R33.9 Retention of urine, unspecified; K59.00 Constipation, unspecified; Z20.822 Contact with and (suspected) exposure to COVID-19
CPT/HCPCS: 81001; 87086; 87635; U0003; U0005

== ENCOUNTER 2020-10-17 06:03 | Day surgery (SDC) | payer OTHER ==
[2020-10-15 15:30] VITALS: BMI 32.5
[2020-10-17] MEDS ORDERED: Bupivacaine 0.25% HCL 30 ML VIAL ONE (06:36)
[2020-10-17] MEDS ORDERED: Neomycin-Polymyxin 1 ML AMP ONE (06:36)
[2020-10-17] MEDS ORDERED: Fentanyl 100 MCG/2 ML VIAL ONE (07:19)
[2020-10-17] MEDS ORDERED: Midazolam HCl 2 mg/2 ml Vial ONE (07:19)
[2020-10-17] MEDS ORDERED: Propofol 500 MG/50 ML VIAL ONE (07:28)
[2020-10-17] MEDS ORDERED: Lidocaine 1% PF 5 ML VIAL ONE (07:28)
== END 2020-10-17 10:00 | disposition home or self-care (01) ==
LOC: SDC 06:03
PROVIDERS: ATTEND Urology
PROC: 0JH70MZ Insertion of Stimulator Generator into Back Subcutaneous Tissue and Fascia, Open Approach (ICD-10-PCS; principal; 2020-10-17)
DX: N39.46 Mixed incontinence (principal); R33.9 Retention of urine, unspecified; N39.0 Urinary tract infection, site not specified; K59.00 Constipation, unspecified; Z79.899 Other long term (current) drug therapy; Z88.6 Allergy status to analgesic agent
CPT/HCPCS: C1767; J0690; J2250; J2704; J3010; S0020

== ENCOUNTER 2021-06-16 15:12 | Emergency (ER) | payer OTHER ==
[2021-06-16 17:53] LABS: #Lymphocytes 1.5 thou/uL (1.20-3.40); #Monocytes 0.6 thou/uL (0.11-0.59); #Neutrophils 1.9 thou/uL (1.40-6.50); %Basophils 0.9 % (0.0-1.0); %Eosinophils 0.7 % (0.0-10.0); %Monocytes 13.9 % (0.0-10.0); %Neutrophils 46.4 % (42.0-75.0); Hemoglobin 16.4 g/dL (12.0-16.0); Mean Corpuscular Hemoglobin 31.1 pg (27.0-31.0); Mean Corpuscular Volume 94.3 fL (78.0-98.0); Platelet Count 196 thou/uL (130-400); RBC Distribution Width 12.4 % (11.5-14.5); Red Blood Cell (RBC) Count 5.27 mill/uL (4.20-5.40)
[2021-06-16 18:14] LABS: ALT (SGPT) 88 U/L (8-55); AST (SGOT) 39 U/L (5-34); Albumin 3.6 g/dL (3.5-5.0); Alkaline Phosphatase 90 U/L (40-110); Anion Gap 11 mmol/L (10-20); BUN (Urea Nitrogen) 10 mg/dL (9.8-20.1); Bilirubin, Total 0.3 mg/dL (0.2-1.2); Calc. Creatinine Clearance 0 mL/min (70-130); Carbon Dioxide 27 mmol/L (22-29); Chloride 105 mmol/L (98-107); Globulin 3.5 g/dL (2.4-3.5); Glucose 97 mg/dL (70-105); Lipase 10 U/L (8-78); Potassium 3.7 mmol/L (3.5-5.1); Protein, Total 7.1 g/dL (6.0-8.3); Sodium 139 mmol/L (136-145)
[2021-06-16 18:51] LABS: Bacteria/HPF 1+ HPF (None Seen); Bilirubin Negative (Negative); Blood, Urine Negative (Negative); Clarity Clear (Clear); Glucose, Urine (Dipstick) Normal (Negative); Ketone, Urine Negative (Negative); Leukocyte 250 Leu/uL (Negative); Nitrite Negative (Negative); Protein, Urine (Dipstick) 20 mg/dL (Neg-Trace); Specific Gravity, Urine 1.028 (1.002-1.036); Squamous Epithelial 0-3 HPF (0-3); pH, Urine 5.5 (5.0-9.0)
[2021-06-17 17:49] LABS: SARS-CoV-2 PCR by NAA Not Detected (NotDetected)
== END 2021-06-16 19:51 | disposition home or self-care (01) ==
LOC: ERS 15:12
DX: R51.9 Headache, unspecified (principal); R11.2 Nausea with vomiting, unspecified; Z20.822 Contact with and (suspected) exposure to COVID-19
CPT/HCPCS: 36415; 70450; 80053; 81003; 81015; 83690; 85025; 87086; U0003; U0005

== ENCOUNTER 2021-10-14 10:45 | Emergency (ER) | payer OTHER ==
[2021-10-14] MEDS ORDERED: Metoclopramide HCl 10 MG/2 ML VIAL ONE (13:48)
[2021-10-14] MEDS ORDERED: diphenhydrAMINE 50 MG/ML VIAL ONE (13:48)
[2021-10-14 14:22] LABS: #Eosinphils 0.1 thou/uL (0.0-0.7); #Lymphocytes 2.7 thou/uL (1.20-3.40); #Monocytes 0.6 thou/uL (0.11-0.59); #Neutrophils 3.2 thou/uL (1.40-6.50); %Basophils 0.5 % (0.0-1.0); %Eosinophils 1.3 % (0.0-10.0); %Lymphocytes 40.9 % (21.0-51.0); %Monocytes 9.3 % (0.0-10.0); %Neutrophils 48.1 % (42.0-75.0); Hemoglobin 16.3 g/dL (12.0-16.0); Mean Corpuscular HGB CONC 31.4 g/dL (32.0-36.0); Mean Corpuscular Volume 95.5 fL (78.0-98.0); Mean Platelet Volume 7.5 fL (7.4-10.4); Platelet Count 233 thou/uL (130-400); RBC Distribution Width 12.1 % (11.5-14.5); Red Blood Cell (RBC) Count 5.44 mill/uL (4.20-5.40); White Blood Cell (WBC) Count 6.7 thou/uL (4.8-10.8)
[2021-10-14 14:38] LABS: ALT (SGPT) 20 U/L (8-55); AST (SGOT) 18 U/L (5-34); Alkaline Phosphatase 73 U/L (40-110); Anion Gap 12 mmol/L (10-20); BUN (Urea Nitrogen) 11 mg/dL (9.8-20.1); Bilirubin, Total 0.6 mg/dL (0.2-1.2); Calc. Creatinine Clearance 0 mL/min (70-130); Calcium 9.6 mg/dL (7.8-10.44); Carbon Dioxide 23 mmol/L (22-29); Chloride 107 mmol/L (98-107); Globulin 3.4 g/dL (2.4-3.5); Glucose 81 mg/dL (70-105); Potassium 3.5 mmol/L (3.5-5.1); Protein, Total 7.4 g/dL (6.0-8.3); Sodium 138 mmol/L (136-145)
[2021-10-14] MEDS ORDERED: Ketorolac Tromethamine 30 MG/ML VIAL ONE (15:18)
== END 2021-10-14 16:45 | disposition home or self-care (01) ==
LOC: ERS 10:45
DX: G43.909 Migraine, unspecified, not intractable, without status migrainosus (principal)
CPT/HCPCS: 36415; 70450; 80053; 85025; 96365; 96375; J1200; J1885; J2765

== ENCOUNTER 2021-10-15 15:34 | Emergency (ER) | payer OTHER ==
[2021-10-15] MEDS ORDERED: Ketorolac Tromethamine 30 MG/ML VIAL ONE (16:38)
[2021-10-15] MEDS ORDERED: Dexamethasone 4 mg/ml Vial ONE (16:38)
[2021-10-15] MEDS ORDERED: Acetaminophen 500 MG TAB ONE (16:38)
[2021-10-15] MEDS ORDERED: diphenhydrAMINE 50 MG/ML VIAL ONE (16:38)
[2021-10-15] MEDS ORDERED: Prochlorperazine 10 MG/2 ML VIAL ONE (16:48)
[2021-10-15] MEDS ORDERED: Magnesium 2 GM/50 ML BAG (IN WATER) ONE (17:22)
[2021-10-15 18:16] LABS: #Eosinphils 0.1 thou/uL (0.0-0.7); #Lymphocytes 2.5 thou/uL (1.20-3.40); #Monocytes 0.4 thou/uL (0.11-0.59); #Neutrophils 2.9 thou/uL (1.40-6.50); %Basophils 0.2 % (0.0-1.0); %Eosinophils 1.4 % (0.0-10.0); %Lymphocytes 41.6 % (21.0-51.0); %Neutrophils 49.7 % (42.0-75.0); Hemoglobin 16.5 g/dL (12.0-16.0); Mean Corpuscular Hemoglobin 31.6 pg (27.0-31.0); Mean Corpuscular Volume 95.6 fL (78.0-98.0); Mean Platelet Volume 8.2 fL (7.4-10.4); Platelet Count 252 thou/uL (130-400); Red Blood Cell (RBC) Count 5.22 mill/uL (4.20-5.40); White Blood Cell (WBC) Count 5.9 thou/uL (4.8-10.8)
[2021-10-15 18:50] LABS: ALT (SGPT) 20 U/L (8-55); AST (SGOT) 17 U/L (5-34); Alkaline Phosphatase 72 U/L (40-110); Anion Gap 15 mmol/L (10-20); BUN (Urea Nitrogen) 10 mg/dL (9.8-20.1); Bilirubin, Total 0.4 mg/dL (0.2-1.2); CRP (Inflammatory) 0.71 mg/dL (= or < 0.5); Calc. Creatinine Clearance 0 mL/min (70-130); Calcium 9.5 mg/dL (7.8-10.44); Carbon Dioxide 21 mmol/L (22-29); Chloride 109 mmol/L (98-107); Globulin 3.4 g/dL (2.4-3.5); Glucose 73 mg/dL (70-105); Potassium 3.7 mmol/L (3.5-5.1); Protein, Total 7.4 g/dL (6.0-8.3); Sodium 141 mmol/L (136-145)
[2021-10-15] MEDS ORDERED: SODIUM CHLORIDE 0.9% IVPB SCH (20:15)
[2021-10-15] MEDS ORDERED: VALPROATE SODIUM IVPB SCH (20:15)
== END 2021-10-15 20:51 | disposition home or self-care (01) ==
LOC: ERS 15:34
DX: G43.719 Chronic migraine without aura, intractable, without status migrainosus (principal)
CPT/HCPCS: 80053; 85025; 85652; 86140; 96365; 96375; J0780; J1100; J1200; J1885; J3475; J7050

== ENCOUNTER 2022-02-20 20:13 | Emergency (ER) | payer OTHER ==
[2022-02-20] MEDS ORDERED: Ondansetron ODT 4 MG TAB ONE (22:21)
[2022-02-20 23:21] LABS: SARS-CoV-2 NAA Rapid Test Not Detected (NotDetected)
== END 2022-02-21 00:28 | disposition home or self-care (01) ==
LOC: ERS 20:13
DX: B34.9 Viral infection, unspecified (principal); Z20.822 Contact with and (suspected) exposure to COVID-19
CPT/HCPCS: 87804; 99284; Q0162; U0002

== ENCOUNTER 2022-03-21 10:11 | Emergency (ER) | payer OTHER ==
[2022-03-21 10:47] LABS: #Eosinphils 0.1 thou/uL (0.0-0.7); #Lymphocytes 1.7 thou/uL (1.20-3.40); #Monocytes 0.4 thou/uL (0.11-0.59); %Basophils 0.3 % (0.0-1.0); %Eosinophils 1.3 % (0.0-10.0); %Lymphocytes 33.5 % (21.0-51.0); %Monocytes 6.9 % (0.0-10.0); Hemoglobin 16.2 g/dL (12.0-16.0); Mean Corpuscular HGB CONC 31.8 g/dL (32.0-36.0); Mean Corpuscular Hemoglobin 30.2 pg (27.0-31.0); Mean Corpuscular Volume 95.2 fL (78.0-98.0); Mean Platelet Volume 7.7 fL (7.4-10.4); Platelet Count 244 thou/uL (130-400); RBC Distribution Width 12.5 % (11.5-14.5); Red Blood Cell (RBC) Count 5.35 mill/uL (4.20-5.40); White Blood Cell (WBC) Count 5.2 thou/uL (4.8-10.8)
[2022-03-21 10:59] LABS: ALT (SGPT) 13 U/L (8-55); AST (SGOT) 12 U/L (5-34); Albumin 4.3 g/dL (3.5-5.0); Alkaline Phosphatase 81 U/L (40-110); Anion Gap 13 mmol/L (10-20); BUN (Urea Nitrogen) 17 mg/dL (9.8-20.1); Bilirubin, Total 0.4 mg/dL (0.2-1.2); Calc. Creatinine Clearance 0 mL/min (70-130); Carbon Dioxide 26 mmol/L (22-29); Chloride 105 mmol/L (98-107); Estimated GFR 58; Globulin 3.7 g/dL (2.4-3.5); Glucose 102 mg/dL (70-105); Potassium 4.2 mmol/L (3.5-5.1); Sodium 140 mmol/L (136-145)
[2022-03-21] MEDS ORDERED: Ondansetron PF 4 MG/2 ML Vial ONE (11:35)
[2022-03-21 12:48] LABS: Bilirubin Negative (Negative); Blood, Urine Trace (Negative); Clarity Clear (Clear); Glucose, Urine (Dipstick) >=1000 mg/dL (Negative); Ketone, Urine Negative (Negative); Leukocyte Negative (Negative); Nitrite Negative (Negative); Protein, Urine (Dipstick) Negative (Neg-Trace); Specific Gravity, Urine 1.025 (1.005-1.030); Urobilinogen 0.2 mg/dL (Less than 2)
[2022-03-21] MEDS ORDERED: Iopamidol-370 76% 500 ML 1 ML ONE (13:12)
[2022-03-21] MEDS ORDERED: Fleet Enema 133 ML BOT PR SCH (14:45)
== END 2022-03-21 17:06 | disposition home or self-care (01) ==
LOC: ERS 10:11
DX: K59.00 Constipation, unspecified (principal)
CPT/HCPCS: 36415; 74177; 80053; 81003; 83690; 85025; 96361; 96374; J2405; Q9967

== ENCOUNTER 2022-03-31 09:28 | Day surgery (SDC) | payer OTHER ==
[2022-03-30 13:31] VITALS: BMI 32.5
[2022-03-31] MEDS ORDERED: PHENYLEPHRINE-NS 100 MCG/ML 10 ML SYRINGE ONE (11:18)
[2022-03-31] MEDS ORDERED: PROPOFOL 200 MG/20 ML VIAL ONE (11:18)
== END 2022-03-31 12:50 | disposition home or self-care (01) ==
LOC: SDC 09:28
PROVIDERS: ATTEND Internal Medicine Gastroenterology
PROC: 0DBN8ZX Excision of Sigmoid Colon, Via Natural or Artificial Opening Endoscopic, Diagnostic (ICD-10-PCS; principal; 2022-03-31)
PROC: 0DB68ZX Excision of Stomach, Via Natural or Artificial Opening Endoscopic, Diagnostic (ICD-10-PCS; principal; 2022-03-31)
DX: K63.5 Polyp of colon (principal); K29.50 Unspecified chronic gastritis without bleeding; B96.81 Helicobacter pylori [H. pylori] as the cause of diseases classified elsewhere; K31.A15 Gastric intestinal metaplasia without dysplasia, involving multiple sites; K57.30 Diverticulosis of large intestine without perforation or abscess without bleeding; K64.9 Unspecified hemorrhoids; K44.9 Diaphragmatic hernia without obstruction or gangrene; K59.00 Constipation, unspecified; R10.13 Epigastric pain; R14.0 Abdominal distension (gaseous); I10 Essential (primary) hypertension; K21.9 Gastro-esophageal reflux disease without esophagitis; Z79.84 Long term (current) use of oral hypoglycemic drugs; Z79.899 Other long term (current) drug therapy; Z88.8 Allergy status to other drugs, medicaments and biological substances; Z98.1 Arthrodesis status
CPT/HCPCS: 88305; 88342; J2704

== ENCOUNTER 2022-06-01 13:15 | Emergency (ER) | payer OTHER | END 2022-06-01 14:24 | disposition home or self-care (01) | LOC: ERS 13:15 | DX: B34.9 Viral infection, unspecified (principal); Z20.822 Contact with and (suspected) exposure to COVID-19 | CPT/HCPCS: 87804; 99283; U0003; U0005 ==

== ENCOUNTER 2023-05-01 09:06 | Emergency (ER) | payer BC, OTHER | END 2023-05-01 10:29 | disposition home or self-care (01) | LOC: ERS 09:06 | DX: J06.9 Acute upper respiratory infection, unspecified (principal) | CPT/HCPCS: 71045 ==

== ENCOUNTER 2023-10-29 13:47 | Outpatient (CLI) | payer BC | END 2023-10-29 13:48 | disposition home or self-care (01) | LOC: SCSMRI 13:47 | PROVIDERS: ATTEND Plastic Surgery Surgery of the Hand | DX: M25.561 Pain in right knee (principal); S83.241A Other tear of medial meniscus, current injury, right knee, initial encounter; M22.41 Chondromalacia patellae, right knee; R60.0 Localized edema ==

== ENCOUNTER 2024-02-04 13:42 | Outpatient (CLI) | payer BC | END 2024-02-04 13:43 | disposition home or self-care (01) | LOC: BICRAD 13:42 | PROVIDERS: ATTEND Internal Medicine Gastroenterology | DX: K59.09 Other constipation (principal); R19.7 Diarrhea, unspecified; N20.0 Calculus of kidney | CPT/HCPCS: 74019 ==